=== PATIENT | female | born 1990 | race Caucasian/White ===

== ENCOUNTER 2017-07-10 23:21 | Emergency (ER) | payer OTHER ==
[2017-07-10 23:27] VITALS: RESP 16
[2017-07-11] MEDS ORDERED: KETOROLAC 30 MG/1 ML SDV IVP ONE (00:26)
[2017-07-11] MEDS ORDERED: NS 1,000 ML IV ONE (00:26)
[2017-07-11] MEDS ORDERED: DEXAMETHASONE 10 MG/ML VIAL IVP ONE (00:26)
--- NOTE | 2017-07-11 00:31 | EDPHY ---
H & P Smoking Status: Never smoked Time Seen by Provider: 07/11/17 00:02 HPI/ROS: CHIEF COMPLAINT: Sore throat, neck stiffness HISTORY OF PRESENT ILLNESS: 27-year-old female presents to the emergency department by private vehicle complaining of sore throat since Wednesday, 5 days. She saw primary care provider yesterday and was diagnosed with strep pharyngitis. She was started on penicillin and has been taking this 3 times daily since she was diagnosed yesterday morning. She states since taking the antibiotic, she has not felt much better. She denies dysphagia. No fevers or chills although she states that she woke up sweating last night. She states today she was feeling okay and she went for a walk and then developed stiffness in her neck. She denies other back pain. Denies urinary symptoms. Denies chest pain or difficulty breathing. She states that she has no known strep exposure. REVIEW OF SYSTEMS: Constitutional: No fever, no chills. Eyes: No double or blurry vision. ENT: sore throat. Respiratory: No cough, no shortness of breath. Cardiac: No chest pain. Gastrointestinal: No abdominal pain, vomiting or diarrhea. Genitourinary: No dysuria. Musculoskeletal: Neck stiffness at all. No back pain. Skin: No rashes. Neurological: No headache. (Ashtyn Headley) Past Medical/Surgical History: Crohn's disease, renal tubular acidosis as an (Ashtyn Headley) Social History: Single (Ashtyn Headley) Physical Exam: General Appearance: Alert, no distress. Temperature 37.3degrees, heart rate 119, 125/82, 97% on room air. Eyes: Pupils equal and round. Extraocular motions are all intact. ENT: Mouth: Mucous membranes moist. Posterior pharyngeal injection and exudate noted. 1+ sized tonsils. No evidence of peritonsillar abscess. No uvular swelling or shift. No muffled voice or trismus. Palpable anterior cervical lymphadenopathy palpated. Respiratory: No wheezing, rhonchi, or rales, lungs are clear to auscultation. Cardiovascular: Regular rate and rhythm. Gastrointestinal: Abdomen is soft and nontender, no masses, no rebound or guarding, bowel sounds normal. Neurological: Alert and oriented x 3, cranial nerves II through XII grossly intact Skin: Warm and dry, no rashes. Musculoskeletal: Nontender to palpate along the cervical, thoracic or lumbar spine. Neck is supple. Extremities: Full range of motion and no peripheral edema. Psychiatric: Patient is oriented X 3, there is no agitation. (Ashtyn Headley) Constitutional: Initial Vital Signs Temperature (C) 37.3 C 07/10/17 23:23 Heart Rate 119 H 07/10/17 23:23 Respiratory Rate 16 07/10/17 23:23 Blood Pressure 125/82 H 07/10/17 23:23 O2 Sat (%) 97 07/10/17 23:23 O2 Delivery Mode Room Air Allergies/Adverse Reactions: No Known Allergies Allergy (Unverified 07/10/17 23:27) Home Medications: Medication Instructions Recorded Minastrin 24 Fe Chewable Tab 07/10/17 Penicillin V Potassium 07/10/17 Pentasa 250 mg (*) 07/10/17 Xyzal 07/10/17 Amoxicillin/Clavulanate Pot 875 mg PO BID #20 tab 07/11/17 [Augmentin 875 mg tab] Fluconazole [Diflucan (*)] 150 mg PO ONCE #2 tab 07/11/17 Medical Decision Making ED Course/Re-evaluation: 27 year old female presents to the emergency department with persisting sore throat and now neck stiffness. Patient is nontoxic appearing. IV was established and she was given 10 mg of Decadron IV, 30 mg of Toradol IV, and normal saline IV. Patient was feeling bit better. Patient was also seen examined by Dr. Chaudhary, who agreed that the patient does not require lumbar puncture. Because the patient has been on 48 hours of penicillin without relief and continues to have exudate pharyngitis with elevated white blood cell count of 13.9 with a shift. She will be changed to Augmentin 875 mg twice daily for [address] Chaudhary agrees. She was also given referral to ENT. She was instructed to return if she developed any change in symptoms or if she felt worse in any way. I doubt this patient has meningitis. Her neck is supple. (Ashtyn Headley) Differential Diagnosis: Including but not limited to strep pharyngitis, exudate pharyngitis, mononucleosis, peritonsillar abscess, retropharyngeal abscess, meningitis (Ashtyn Headley) Other Provider: PHYSICIAN DOCUMENTATION: The patient was evaluated and managed by the Physician News Assignment Editor. My co- signature indicates that I have reviewed this chart and I agree with the findings and plan of care as documented. I am the secondary supervising physician. I did see this patient independently. She has an exudative pharyngitis. I am not concerned about meningitis given patient has full range of motion of her neck, no headache, no photophobia. She had a positive strep culture yesterday. (Fatemeh Chaudhary) - Data Points Laboratory Results: Laboratory Results 07/11/17 00:30 07/11/17 00:30 07/11/17 07/11/17 07/11/17 00:30 00:30 00:30 WBC 13.91 10^3/uL H 10^3/uL (3.80-9.50) RBC 4.44 10^6/uL 10^6/uL (4.18-5.33) Hgb 13.7 g/dL g/dL (12.6-16.3) Hct 39.0 % % (38.0-47.0) MCV 87.8 fL fL (81.5-99.8) MCH 30.9 pg pg (27.9-34.1) MCHC 35.1 g/dL g/dL (32.4-36.7) RDW 13.3 % % (11.5-15.2) Plt Count 284 10^3/uL 10^3/uL (150-400) MPV 9.8 fL fL (8.7-11.7) Neut % (Auto) 79.5 % H % (39.3-74.2) Lymph % (Auto) 11.1 % L % (15.0-45.0) [place] % (Auto) 6.8 % % (4.5-13.0) Eos % (Auto) 1.8 % % (0.6-7.6) Baso % (Auto) 0.4 % % (0.3-1.7) Nucleat RBC Rel Count 0.0 % % (0.0-0.2) Absolute Neuts (auto) 11.07 10^3/uL H 10^3/uL (1.70-6.50) Absolute Lymphs (auto) 1.54 10^3/uL 10^3/uL (1.00-3.00) Absolute Monos (auto) 0.95 10^3/uL H 10^3/uL (0.30-0.80) Absolute Eos (auto) 0.25 10^3/uL 10^3/uL (0.03-0.40) Absolute Basos (auto) 0.05 10^3/uL 10^3/uL (0.02-0.10) Absolute Nucleated RBC 0.00 10^3/uL 10^3/uL (0-0.01) Immature Gran % 0.4 % % (0.0-1.1) Immature Gran # 0.05 10^3/uL 10^3/uL (0.00-0.10) Sodium 141 mEq/L mEq/L (134-144) Potassium 3.7 mEq/L mEq/L (3.5-5.2) Chloride 106 mEq/L mEq/L (97-110) Carbon Dioxide 20 mEq/l L mEq/l (22-31) Anion Gap 15 mEq/L mEq/L (8-16) BUN 5 mg/dL L mg/dL (7-23) Creatinine 0.6 mg/dL mg/dL (0.6-1.0) Estimated GFR > 60 Glucose 102 mg/dL H mg/dL (70-100) Calcium 9.2 mg/dL mg/dL (8.5-10.4) Monoscreen NEGATIVE (NEGATIVE) Medications Given: Discontinued Medications Amoxicillin/Clavulanate Potassium (Augmentin 875mg) 875 mg PO EDNOW ONE PRN Reason: Protocol Stop: 07/11/17 01:43 Last Admin: 07/11/17 02:01 Dose: 875 mg Dexamethasone (Decadron Injection) 10 mg IVP EDNOW ONE Stop: 07/11/17 00:27 Last Admin: 07/11/17 00:33 Dose: 10 mg Sodium Chloride (Ns) 1,000 mls @ 0 mls/hr IV ONCE ONE PRN Reason: Wide Open Stop: 07/11/17 00:27 Last Admin: 07/11/17 00:33 Dose: 1,000 mls Ketorolac Tromethamine (Toradol) 30 mg IVP EDNOW ONE Stop: 07/11/17 00:27 Last Admin: 07/11/17 00:57 Dose: 30 mg Departure - Departure Disposition: Home, Routine, Self-Care Clinical Impression: Exudative pharyngitis Condition: Good Instructions: Strep Throat (ED) Additional Instructions: Stop penicillin that was prescribed. He will be changed to Augmentin 875 mg twice daily for 10 days. Adult Pain & Fever Control: We recommend Acetaminophen (Tylenol) and Ibuprofen (Motrin,Advil) for pain and fever control. When fever is high or pain severe, both drugs can be used at the same time, but at different intervals. Please note the time differences. Your dose is: Acetaminophen 1000mg every 4 to 6 hours Ibuprofen 600mg every 8 hours with food Note: do not take Acetaminophen with Hydrocodone (Vicodin, Lortab) or Oycodone (Percocet). These medications also contain Acetaminophen. No more than 3000mg of Acetaminophen should be taken in 24 hours (for an adult). Referrals: Varsha Wray MD [Medical Doctor] - As per Instructions ([facility]) Prescriptions: Amoxicillin/Clavulanate Pot [Augmentin 875 mg tab] 875 mg PO BID #20 tab Fluconazole [Diflucan (*)] 150 mg PO ONCE #2 tab
[2017-07-11 00:38] LABS: % IMMATURE GRANULYOCYTES 0.4 % (0.0-1.1); ABSOLUTE IMMATURE GRANULOCYTES 0.05 10^3/uL (0.00-0.10); ADD DIFF? NO; ADD MORPH? NO; ADD SCAN? NO; ATYPICAL LYMPHOCYTE FLAG 10 (0-99); FRAGMENT RBC FLAG 0 (0-99); HEMOGLOBIN 13.7 g/dL (12.6-16.3); LEFT SHIFT FLG 0 (0-99); LIPEMIA HEMOLYSIS FLAG 90 (0-99); MEAN CELL HEMOGLOBIN 30.9 pg (27.9-34.1); MEAN CELL HEMOGLOBIN CONCENTR. 35.1 g/dL (32.4-36.7); MEAN CELL VOLUME 87.8 fL (81.5-99.8); MEAN PLATELET VOLUME 9.8 fL (8.7-11.7); PLATELET CLUMPS FLAG 10 (0-99); PLATELET COUNT 284 10^3/uL (150-400); RED BLOOD CELL COUNT 4.44 10^6/uL (4.18-5.33); RED CELL DISTRIBUTION WIDTH 13.3 % (11.5-15.2)
[2017-07-11 00:54] LABS: ANION GAP 15 mEq/L (8-16); CALCIUM 9.2 mg/dL (8.5-10.4); CARBON DIOXIDE 20 mEq/l (22-31); CHLORIDE 106 mEq/L (97-110); CREATININE 0.6 mg/dL (0.6-1.0); GLOMERULAR FILTRATION RATE > 60; GLUCOSE 102 mg/dL (70-100); POTASSIUM 3.7 mEq/L (3.5-5.2); SODIUM 141 mEq/L (134-144)
[2017-07-11] MEDS ORDERED: AMOXICILLIN/CLAVULANATE POT 875/125 MG TAB PO ONE (01:42)
[2017-07-11 02:13] VITALS: BP 106/74; PULSE 84; TEMP 98.2; O2SAT 96
== END 2017-07-11 02:13 | disposition home or self-care (01) ==
PROC: 3E0337Z Introduction of Electrolytic and Water Balance Substance into Peripheral Vein, Percutaneous Approach (ICD-10-PCS; principal; 2017-07-10)
DX: J02.9 Acute pharyngitis, unspecified (principal)
CPT/HCPCS: 96374; J1100; J1885

== ENCOUNTER → 2019-02-10 | Outpatient (CLI) | payer OTHER | LOC: FIMAGING 12:19 | PROVIDERS: ATTEND Internal Medicine | DX: E04.1 Nontoxic single thyroid nodule (principal) ==